=== PATIENT | female | born 1975 | race African-American/Black ===

== ENCOUNTER 2017-04-14 10:14 | Outpatient (CLI) | payer MEDICARE ==
[2017-04-14 13:18] LABS: BUN (Urea Nitrogen) 7 mg/dL (7.0-18.7); Calc. Creatinine Clearance 0 mL/min (70-130); Carbon Dioxide 24 mmol/L (22-29); Chloride 105 mmol/L (98-107); Estimated GFR-MDRD Greater than 90; Glucose 91 mg/dL (70-105); Potassium 3.6 mmol/L (3.5-5.1); Sodium 139 mmol/L (136-145)
[2017-04-14 13:19] LABS: ALT (SGPT) 23 U/L (8-55); AST (SGOT) 17 U/L (5-34); Albumin 3.8 g/dL (3.5-5.0); Alkaline Phosphatase 63 U/L (40-150); Bilirubin, Total 0.9 mg/dL (0.2-1.2); Calcium 9.1 mg/dL (7.8-10.44); Cholesterol 148 mg/dL (< 200 Desired); Globulin 4.3 g/dL (2.4-3.5); HDL Cholesterol 46 mg/dL (>60 Neg Risk); Protein, Total 8.1 g/dL (6.0-8.3); Triglycerides 64 mg/dL (Less than 150)
[2017-04-14 13:21] LABS: LDL Cholesterol, Calculated 90 mg/dL
[2017-04-14 13:25] LABS: Cardiac Risk 3.2 (Less than 4.5)
[2017-04-14 13:27] LABS: Anion Gap 14 mmol/L (10-20); Vitamin D, 25 Hydroxy 7.8 ng/ml (> 30.0)
[2017-04-14 17:10] LABS: Iron 24 ug/dL (50-170); Iron Binding Capacity, Total 341 mcg/dL (265-497)
[2017-04-14 17:38] LABS: Ferritin 24.87 ng/mL (10-291)
== END 2017-04-14 10:15 | disposition home or self-care (01) ==
LOC: MADLABBHPM 10:14
PROVIDERS: ATTEND Family Medicine
DX: D50.9 Iron deficiency anemia, unspecified (principal); E55.9 Vitamin D deficiency, unspecified; I10 Essential (primary) hypertension
CPT/HCPCS: 36415; 80053; 80061; 82306; 82728; 83540; 83550

== ENCOUNTER 2018-11-26 13:56 | Outpatient (CLI) | payer MEDICARE ==
--- NOTE | 2018-11-26 14:59 | RAD ---
THREE VIEWS LEFT KNEE: Comparison: None. History: Chronic left knee pain. FINDINGS: Three views of the left knee shows severe tricompartmental joint space narrowing and osteophyte forma tion consistent with osteoarthritis. There is no evidence of fracture or dislocation. No knee effusio n is seen. IMPRESSION: Severe left knee osteoarthritis. POS: [facility]
[2018-11-26 15:01] LABS: ALT (SGPT) 22 U/L (8-55); AST (SGOT) 14 U/L (5-34); Alkaline Phosphatase 71 U/L (40-150); Anion Gap 13 mmol/L (10-20); BUN (Urea Nitrogen) 11 mg/dL (7.0-18.7); Calc. Creatinine Clearance 0 mL/min (70-130); Calcium 9.4 mg/dL (7.8-10.44); Carbon Dioxide 24 mmol/L (22-29); Chloride 108 mmol/L (98-107); Estimated GFR-MDRD 89; Globulin 4.1 g/dL (2.4-3.5); Glucose 92 mg/dL (70-105); Potassium 4.3 mmol/L (3.5-5.1); Protein, Total 8.1 g/dL (6.0-8.3); Sodium 141 mmol/L (136-145)
[2018-11-26 15:10] LABS: Hemoglobin 10.4 g/dL (12.0-16.0); Hypochromia SLIGHT = 6-15 cells (100X) (0-5/hpf); Lymphocytes 31 % (21-51); MDiff Complete? YES; Mean Corpuscular Hemoglobin 19.9 pg (27.0-31.0); Mean Corpuscular Volume 68.8 fL (78.0-98.0); Mean Platelet Volume 5.9 fL (7.4-10.4); Microcytosis SLIGHT = 6-15 cells (100X) (0-5/hpf); Monocytes 8 % (0-10); Neutrophil 61 % (42-75); Platelet Count 366 thou/uL (130-400); Platelet Morphology Comment Appears Adequate; RBC Distribution Width 18.1 % (11.5-14.5); Red Blood Cell (RBC) Count 5.19 mill/uL (4.20-5.40); White Blood Cell (WBC) Count 8.6 thou/uL (4.8-10.8)
--- NOTE | 2018-11-26 15:13 | RAD ---
THREE VIEWS RIGHT KNEE: History: Chronic knee pain. FINDINGS: Three views of the right knee shows severe tricompartmental joint space narrowing and osteophyte form ation consistent with osteoarthritis. There is no evidence of acute fracture or dislocation. No knee effusion is seen. IMPRESSION: Severe right knee osteoarthritis. POS: [facility]
== END 2018-11-26 13:57 | disposition home or self-care (01) ==
LOC: MADRAD 13:56
PROVIDERS: ATTEND Orthopaedic Surgery
DX: M25.561 Pain in right knee (principal); M25.562 Pain in left knee; D47.3 Essential (hemorrhagic) thrombocythemia; I10 Essential (primary) hypertension; M17.0 Bilateral primary osteoarthritis of knee
CPT/HCPCS: 36415; 80053; 82728; 83540; 85025

== ENCOUNTER 2019-07-31 22:32 | Emergency (ER) | payer MEDICARE ==
[2019-07-31] MEDS ORDERED: Nitroglycerin 2% Ointment 1 INCH/1 GM Packet ONE (23:01)
[2019-07-31] MEDS ORDERED: Nitroglycerin 0.4 MG TAB 1 EACH ONE (23:01)
--- NOTE | 2019-07-31 23:12 | RAD ---
Chest one view HISTORY: Cough. FINDINGS: Cardiac silhouette is magnified and enlarged. Pulmonary vasculature slightly engorged. Medi astinum is midline. Left hemidiaphragm not well visualized, although overlying soft tissues and the enlarged heart obscure this area. No evidence of pneumothorax. IMPRESSION: Cardiomegaly with pulmonary vascular congestion. Consider CHF.
[2019-07-31 23:32] LABS: ALT (SGPT) 18 U/L (8-55); AST (SGOT) 23 U/L (5-34); Alkaline Phosphatase 61 U/L (40-110); Anion Gap 17 mmol/L (10-20); BUN (Urea Nitrogen) 12 mg/dL (7.0-18.7); Bilirubin, Total 3.2 mg/dL (0.2-1.2); Calc. Creatinine Clearance 0 mL/min (70-130); Calcium 9.1 mg/dL (7.8-10.44); Carbon Dioxide 22 mmol/L (22-29); Chloride 107 mmol/L (98-107); Estimated GFR-MDRD 80; Globulin 3.9 g/dL (2.4-3.5); Glucose 122 mg/dL (70-105); Potassium 3.9 mmol/L (3.5-5.1); Protein, Total 7.9 g/dL (6.0-8.3); Sodium 142 mmol/L (136-145)
[2019-07-31 23:50] LABS: #Basophils 0.1 thou/uL (0.0-0.2); #Lymphocytes 0.9 thou/uL (1.20-3.40); #Monocytes 0.5 thou/uL (0.11-0.59); #Neutrophils 11.3 thou/uL (1.40-6.50); %Basophils 0.7 % (0.0-1.0); %Eosinophils 0.3 % (0.0-10.0); %Lymphocytes 7.3 % (21.0-51.0); %Monocytes 3.9 % (0.0-10.0); %Neutrophils 87.9 % (42.0-75.0); Anisocytosis MODERATE=16-30 cells (100X) (0-5/hpf); Hemoglobin 11.2 g/dL (12.0-16.0); Hypochromia SLIGHT = 6-15 cells (100X) (0-5/hpf); MDiff Complete? YES; Mean Corpuscular HGB CONC 28.4 g/dL (32.0-36.0); Mean Corpuscular Hemoglobin 21.6 pg (27.0-31.0); Mean Corpuscular Volume 76.2 fL (78.0-98.0); Mean Platelet Volume 6.1 fL (7.4-10.4); Microcytosis SLIGHT = 6-15 cells (100X) (0-5/hpf); Ovalocytes SLIGHT = 2-5 cells (100X) (0-1/hpf); Platelet Count 435 thou/uL (130-400); Polychromasia SLIGHT = 2-3 cells (100X) (0-2/hpf); RBC Distribution Width 17.2 % (11.5-14.5); Red Blood Cell (RBC) Count 5.17 mill/uL (4.20-5.40); White Blood Cell (WBC) Count 12.8 thou/uL (4.8-10.8)
[2019-07-31 23:55] LABS: CKMB 1.9 ng/mL (0-6.6)
[2019-08-01] MEDS ORDERED: Furosemide 40 MG/4 ML VIAL ONE (00:12)
[2019-08-01] MEDS ORDERED: Aspirin Chewable 81 MG TAB ONE (00:12)
== END 2019-08-01 01:41 | disposition short-term general hospital (02) ==
LOC: MADERS 22:32
DX: I16.9 Hypertensive crisis, unspecified (principal); I11.0 Hypertensive heart disease with heart failure; I50.9 Heart failure, unspecified; R79.89 Other specified abnormal findings of blood chemistry; R09.02 Hypoxemia; E66.01 Morbid (severe) obesity due to excess calories; Z79.899 Other long term (current) drug therapy
CPT/HCPCS: 71045; 80053; 82553; 83880; 84484; 85025; 93005; 94760; 96374; J1940

== ENCOUNTER 2020-08-31 14:37 | Outpatient (CLI) | payer MEDICARE ==
--- NOTE | 2020-08-31 15:02 | RAD ---
Left knee 3 views HISTORY: Left knee pain. COMPARISON: 11/26/2018. FINDINGS: Near complete joint space loss of the medial compartment. Mild genu varus. Prominent tricom partmental osteophytosis. No acute fracture, dislocation, or aggressive osseous erosions, or fluid distention of the suprapatel lar bursa. IMPRESSION : Prominent arthritic changes. Stable compared to 11/26/2018.
--- NOTE | 2020-08-31 15:04 | RAD ---
Right knee 3 views HISTORY: Knee pain. COMPARISON: 11/26/2018. FINDINGS: Complete loss of joint space at the medial compartment with cortical remodeling and settlin g of the undersurface of the medial tibial plateau. Mild genu varus. Prominent tricompartmental osteophytosis. Osseous excrescence projecting anteriorly from the medial femoral condyle is unchanged and favored to represent an osteochondroma. No acute fracture, dislocation, or fluid distention of the suprapatellar bursa evident. IMPRESSION : Severe osteoarthritic changes. Stable compared to 11/26/2018.
== END 2020-08-31 14:38 | disposition home or self-care (01) ==
LOC: MADRAD 14:37
PROVIDERS: ATTEND Orthopaedic Surgery
DX: M17.0 Bilateral primary osteoarthritis of knee (principal)

== ENCOUNTER 2021-04-15 22:51 | Emergency (ER) | payer MEDICARE ==
[2021-04-15] MEDS ORDERED: predniSONE 10 MG TAB ONE (23:15)
[2021-04-15] MEDS ORDERED: HYDROcodone/Acetaminophen 5/325 mg Tablet ONE (23:15)
[2021-04-15] MEDS ORDERED: Acetaminophen 325 MG TAB ONE (23:15)
== END 2021-04-15 23:20 | disposition home or self-care (01) ==
LOC: MADERS 22:51
DX: M25.561 Pain in right knee (principal); I11.0 Hypertensive heart disease with heart failure; I50.9 Heart failure, unspecified; E66.01 Morbid (severe) obesity due to excess calories
CPT/HCPCS: 99283; J7512

== ENCOUNTER 2021-07-29 19:55 | Inpatient (IN) | payer MEDICARE ==
[2021-07-29 21:05] LABS: #Monocytes 0.5 thou/uL (0.11-0.59); #Neutrophils 9.4 thou/uL (1.40-6.50); %Basophils 0.4 % (0.0-1.0); %Lymphocytes 9.2 % (21.0-51.0); %Monocytes 4.8 % (0.0-10.0); %Neutrophils 85.6 % (42.0-75.0); Anisocytosis SLIGHT = 6-15 cells (100X) (0-5/hpf); Hemoglobin 10.3 g/dL (12.0-16.0); MDiff Complete? YES; Mean Corpuscular HGB CONC 29.9 g/dL (32.0-36.0); Mean Corpuscular Hemoglobin 20.9 pg (27.0-31.0); Mean Corpuscular Volume 69.7 fL (78.0-98.0); Mean Platelet Volume 7.7 fL (7.4-10.4); Microcytosis SLIGHT = 6-15 cells (100X) (0-5/hpf); Ovalocytes SLIGHT = 2-5 cells (100X) (0-1/hpf); Platelet Count 307 thou/uL (130-400); Platelet Morphology Comment Appears Adequate; RBC Distribution Width 16.1 % (11.5-14.5); Red Blood Cell (RBC) Count 4.93 mill/uL (4.20-5.40)
[2021-07-29 21:09] LABS: ALT (SGPT) 19 U/L (8-55); AST (SGOT) 22 U/L (5-34); Albumin 3.7 g/dL (3.5-5.0); Alkaline Phosphatase 55 U/L (40-110); Anion Gap 15 mmol/L (10-20); BUN (Urea Nitrogen) 9 mg/dL (7.0-18.7); Bilirubin, Total 2.6 mg/dL (0.2-1.2); Calc. Creatinine Clearance 0 mL/min (70-130); Calcium 9.2 mg/dL (7.8-10.44); Carbon Dioxide 23 mmol/L (22-29); Chloride 101 mmol/L (98-107); Globulin 5.1 g/dL (2.4-3.5); Glucose 102 mg/dL (70-105); Potassium 3.5 mmol/L (3.5-5.1); Protein, Total 8.8 g/dL (6.0-8.3); Sodium 135 mmol/L (136-145)
[2021-07-29] MEDS ORDERED: Acetaminophen 500 MG TAB ONE (21:20)
[2021-07-29] MEDS ORDERED: Sodium Chloride 0.9% 100 ML ONE (21:20)
[2021-07-29] MEDS ORDERED: Cefepime 2 GM VIAL ONE (21:20)
[2021-07-29] MEDS ORDERED: Sodium Chloride 0.9% 250 ML 500 ML ONE (21:56)
[2021-07-29 23:43] VITALS: BMI 54.3
[2021-07-30] MEDS ORDERED: Acetaminophen 325 MG TAB PO PRN (00:15)
[2021-07-30] MEDS ORDERED: Enoxaparin Sodium 40 MG/0.4 ML SYRINGE SC SCH ×2 (00:15)
[2021-07-30] MEDS ORDERED: Ondansetron ODT 4 MG TAB PO PRN (00:15)
[2021-07-30] MEDS ORDERED: HYDROcodone/Acetaminophen 5/325 mg Tablet PO PRN (00:15)
[2021-07-30] MEDS: HYDROcodone/Acetaminophen 5/325 mg Tablet PO PRN ×2 (01:28→22:29)
[2021-07-30] MEDS: Cefepime 2 GM in Sodium Chloride 0.9% 100 ML IVPB SCH ×3 (05:26→22:26)
[2021-07-30 05:29] LABS: Anisocytosis SLIGHT = 6-15 cells (100X) (0-5/hpf); Band 10 % (5-11); Hemoglobin 9.2 g/dL (12.0-16.0); Lymphocytes 11 % (21-51); MDiff Complete? YES; Mean Corpuscular HGB CONC 29.4 g/dL (32.0-36.0); Mean Corpuscular Hemoglobin 20.9 pg (27.0-31.0); Mean Corpuscular Volume 71.1 fL (78.0-98.0); Mean Platelet Volume 6.5 fL (7.4-10.4); Microcytosis SLIGHT = 6-15 cells (100X) (0-5/hpf); Monocytes 5 % (0-10); Neutrophil 74 % (42-75); Ovalocytes SLIGHT = 2-5 cells (100X) (0-1/hpf); Platelet Count 267 thou/uL (130-400); Platelet Morphology Comment Appears Adequate; RBC Distribution Width 16.2 % (11.5-14.5)
[2021-07-30 05:36] LABS: Anion Gap 13 mmol/L (10-20)
[2021-07-30 05:58] LABS: BUN (Urea Nitrogen) 15 mg/dL (7.0-18.7); Calc. Creatinine Clearance 115 mL/min (70-130); Calcium 8.6 mg/dL (7.8-10.44); Carbon Dioxide 23 mmol/L (22-29); Chloride 104 mmol/L (98-107); Glucose 113 mg/dL (70-105); Potassium 4.3 mmol/L (3.5-5.1); Sodium 136 mmol/L (136-145)
[2021-07-30 07:44] LABS: SARS-CoV-2 NAA Rapid Test Not Detected (NotDetected)
[2021-07-30] MEDS: Ferrous Sulfate 325 MG TAB PO SCH (07:53)
[2021-07-30] MEDS: Vancomycin HCl 1 GM in Sodium Chloride 0.9% 250 ML 250 ML IVPB SCH ×4 (07:55→20:17)
[2021-07-30] MEDS: Aspirin 81 mg Enteric Coated Tablet PO SCH (08:00)
[2021-07-30] MEDS ORDERED: Carvedilol 6.25 MG TAB PO SCH (08:00)
[2021-07-30] MEDS: Famotidine 20 MG TAB PO SCH ×2 (08:00→20:17)
[2021-07-30] MEDS: Enoxaparin Sodium 40 MG/0.4 ML SYRINGE SC SCH (08:01)
[2021-07-31] MEDS: Cefepime 2 GM in Sodium Chloride 0.9% 100 ML IVPB SCH ×3 (04:59→22:46)
[2021-07-31 05:35] LABS: Anisocytosis SLIGHT = 6-15 cells (100X) (0-5/hpf); Band 8 % (5-11); Eosinophils 1 % (0-10); Hemoglobin 8.8 g/dL (12.0-16.0); Lymphocytes 10 % (21-51); MDiff Complete? YES; Mean Corpuscular HGB CONC 30.3 g/dL (32.0-36.0); Mean Corpuscular Hemoglobin 21.2 pg (27.0-31.0); Mean Corpuscular Volume 69.9 fL (78.0-98.0); Mean Platelet Volume 6.8 fL (7.4-10.4); Microcytosis SLIGHT = 6-15 cells (100X) (0-5/hpf); Monocytes 4 % (0-10); Neutrophil 77 % (42-75); Platelet Count 257 thou/uL (130-400); RBC Distribution Width 16.5 % (11.5-14.5); Red Blood Cell (RBC) Count 4.18 mill/uL (4.20-5.40); White Blood Cell (WBC) Count 11.8 thou/uL (4.8-10.8)
[2021-07-31 05:37] LABS: Anion Gap 12 mmol/L (10-20); BUN (Urea Nitrogen) 21 mg/dL (7.0-18.7); Calc. Creatinine Clearance 132 mL/min (70-130); Calcium 8.7 mg/dL (7.8-10.44); Carbon Dioxide 23 mmol/L (22-29); Chloride 106 mmol/L (98-107); Glucose 84 mg/dL (70-105); Sodium 137 mmol/L (136-145)
[2021-07-31] MEDS: HYDROcodone/Acetaminophen 5/325 mg Tablet PO PRN ×2 (05:57→20:09)
[2021-07-31 07:14] LABS: Vancomycin, Trough 22.4 ug/mL
[2021-07-31] MEDS: Aspirin 81 mg Enteric Coated Tablet PO SCH (08:28)
[2021-07-31] MEDS: Ferrous Sulfate 325 MG TAB PO SCH (08:28)
[2021-07-31] MEDS: Enoxaparin Sodium 40 MG/0.4 ML SYRINGE SC SCH (08:28)
[2021-07-31] MEDS: Famotidine 20 MG TAB PO SCH ×2 (08:28→20:06)
[2021-07-31] MEDS: Vancomycin HCl 750 MG in Sodium Chloride 0.9% 250 ML 250 ML IVPB SCH ×5 (09:03→21:15)
[2021-08-01] MEDS: HYDROcodone/Acetaminophen 5/325 mg Tablet PO PRN ×2 (02:46→20:20)
[2021-08-01] MEDS: Bisacodyl 5 MG TAB PO PRN (02:47)
[2021-08-01] MEDS: Cefepime 2 GM in Sodium Chloride 0.9% 100 ML IVPB SCH ×3 (05:22→22:50)
[2021-08-01] MEDS: Aspirin 81 mg Enteric Coated Tablet PO SCH (08:04)
[2021-08-01] MEDS: Ferrous Sulfate 325 MG TAB PO SCH (08:04)
[2021-08-01] MEDS: Famotidine 20 MG TAB PO SCH ×2 (08:04→20:22)
[2021-08-01] MEDS: Enoxaparin Sodium 40 MG/0.4 ML SYRINGE SC SCH (08:04)
[2021-08-01] MEDS: Vancomycin HCl 750 MG in Sodium Chloride 0.9% 250 ML 250 ML IVPB SCH ×4 (08:06→21:35)
[2021-08-01 19:26] LABS: Vancomycin, Trough 18.9 ug/mL
[2021-08-02] MEDS: HYDROcodone/Acetaminophen 5/325 mg Tablet PO PRN ×3 (04:17→20:52)
[2021-08-02] MEDS: Cefepime 2 GM in Sodium Chloride 0.9% 100 ML IVPB SCH ×3 (05:28→22:44)
[2021-08-02] MEDS: Ferrous Sulfate 325 MG TAB PO SCH (08:26)
[2021-08-02] MEDS: Enoxaparin Sodium 40 MG/0.4 ML SYRINGE SC SCH (08:26)
[2021-08-02] MEDS: Famotidine 20 MG TAB PO SCH ×2 (08:26→20:28)
[2021-08-02] MEDS: Aspirin 81 mg Enteric Coated Tablet PO SCH (08:26)
[2021-08-02] MEDS: Vancomycin HCl 750 MG in Sodium Chloride 0.9% 250 ML 250 ML IVPB SCH ×4 (08:26→20:28)
[2021-08-02] MEDS ORDERED: Silver Sulfadiazine 50 GM TUBE TOP SCH (09:00)
[2021-08-02] MEDS ORDERED: Furosemide 40 MG TAB PO SCH ×2 (13:00→21:00)
[2021-08-02] MEDS: Silver Sulfadiazine 50 GM JAR TP SCH (15:02)
[2021-08-02] MEDS ORDERED: Silver Sulfadiazine 50 GM JAR TP SCH (21:00)
[2021-08-03] MEDS: Cefepime 2 GM in Sodium Chloride 0.9% 100 ML IVPB SCH ×3 (05:38→23:11)
[2021-08-03] MEDS ORDERED: Furosemide 20 MG TAB PO SCH (06:00)
[2021-08-03] MEDS: Vancomycin HCl 750 MG in Sodium Chloride 0.9% 250 ML 250 ML IVPB SCH ×4 (08:21→21:24)
[2021-08-03] MEDS: Aspirin 81 mg Enteric Coated Tablet PO SCH (08:29)
[2021-08-03] MEDS: Ferrous Sulfate 325 MG TAB PO SCH (08:29)
[2021-08-03] MEDS: Famotidine 20 MG TAB PO SCH ×2 (08:29→20:53)
[2021-08-03] MEDS: Silver Sulfadiazine 50 GM JAR TP SCH (08:30)
[2021-08-03] MEDS: Enoxaparin Sodium 40 MG/0.4 ML SYRINGE SC SCH (08:30)
[2021-08-03] MEDS: Furosemide 40 MG TAB PO SCH (14:41)
[2021-08-03] MEDS: Bisacodyl 5 MG TAB PO PRN (21:24)
[2021-08-04] MEDS: Cefepime 2 GM in Sodium Chloride 0.9% 100 ML IVPB SCH ×2 (06:03→13:22)
[2021-08-04] MEDS: HYDROcodone/Acetaminophen 5/325 mg Tablet PO PRN (06:14)
[2021-08-04 07:23] LABS: #Basophils 0.1 thou/uL (0.0-0.2); #Eosinphils 0.3 thou/uL (0.0-0.7); #Lymphocytes 1.9 thou/uL (1.20-3.40); #Monocytes 0.7 thou/uL (0.11-0.59); #Neutrophils 8.8 thou/uL (1.40-6.50); %Basophils 0.5 % (0.0-1.0); %Eosinophils 2.9 % (0.0-10.0); %Lymphocytes 16.3 % (21.0-51.0); %Monocytes 6.2 % (0.0-10.0); %Neutrophils 74.1 % (42.0-75.0); Hemoglobin 8.9 g/dL (12.0-16.0); Hypochromia SLIGHT = 6-15 cells (100X) (0-5/hpf); MDiff Complete? YES; Mean Corpuscular HGB CONC 30.1 g/dL (32.0-36.0); Mean Corpuscular Hemoglobin 20.8 pg (27.0-31.0); Mean Corpuscular Volume 69.3 fL (78.0-98.0); Mean Platelet Volume 7.2 fL (7.4-10.4); Microcytosis SLIGHT = 6-15 cells (100X) (0-5/hpf); Platelet Count 445 thou/uL (130-400); Polychromasia SLIGHT = 2-3 cells (100X) (0-2/hpf); Red Blood Cell (RBC) Count 4.29 mill/uL (4.20-5.40); White Blood Cell (WBC) Count 11.9 thou/uL (4.8-10.8)
[2021-08-04 07:24] LABS: Vancomycin, Trough 22.1 ug/mL
[2021-08-04 07:26] LABS: ALT (SGPT) 14 U/L (8-55); AST (SGOT) 14 U/L (5-34); Albumin 2.7 g/dL (3.5-5.0); Alkaline Phosphatase 43 U/L (40-110); Anion Gap 14 mmol/L (10-20); BUN (Urea Nitrogen) 10 mg/dL (7.0-18.7); Bilirubin, Total 0.6 mg/dL (0.2-1.2); Calc. Creatinine Clearance 209 mL/min (70-130); Calcium 8.7 mg/dL (7.8-10.44); Carbon Dioxide 19 mmol/L (22-29); Chloride 108 mmol/L (98-107); Globulin 5.1 g/dL (2.4-3.5); Glucose 96 mg/dL (70-105); Potassium 3.6 mmol/L (3.5-5.1); Protein, Total 7.8 g/dL (6.0-8.3); Sodium 137 mmol/L (136-145)
[2021-08-04] MEDS: Vancomycin HCl 750 MG in Sodium Chloride 0.9% 250 ML 250 ML IVPB SCH (07:55)
[2021-08-04] MEDS: Ferrous Sulfate 325 MG TAB PO SCH (08:00)
[2021-08-04] MEDS ORDERED: Potassium Chloride 20 MEQ TAB PO SCH (08:00)
[2021-08-04] MEDS: Furosemide 40 MG TAB PO SCH ×2 (08:55→13:21)
[2021-08-04] MEDS: Enoxaparin Sodium 40 MG/0.4 ML SYRINGE SC SCH (08:55)
[2021-08-04] MEDS: Aspirin 81 mg Enteric Coated Tablet PO SCH (08:55)
[2021-08-04] MEDS ORDERED: Vancomycin HCl 750 MG in Sodium Chloride 0.9% 250 ML 250 ML IVPB SCH (09:00)
[2021-08-04] MEDS: Famotidine 20 MG TAB PO SCH (09:05)
[2021-08-04] MEDS: Silver Sulfadiazine 50 GM JAR TP SCH (09:05)
[2021-08-04] MEDS ORDERED: Vancomycin HCl 500 MG in Sodium Chloride 0.9% 100 ML IVPB SCH (10:00)
[2021-08-04 12:09] VITALS: BP 115/68; TEMP 97.6
== END 2021-08-04 16:47 | disposition swing bed (61) | DRG 603 ==
LOC: MADERS 19:55 → MADMS 21:41
PROVIDERS: ADMIT Family Medicine; ATTEND Family Medicine
DX: L03.115 Cellulitis of right lower limb (principal); I50.22 Chronic systolic (congestive) heart failure; I42.8 Other cardiomyopathies; Z20.822 Contact with and (suspected) exposure to COVID-19; E78.5 Hyperlipidemia, unspecified; I95.2 Hypotension due to drugs; I11.0 Hypertensive heart disease with heart failure; E66.01 Morbid (severe) obesity due to excess calories; D50.9 Iron deficiency anemia, unspecified; T14.8XXA Other injury of unspecified body region, initial encounter; E80.6 Other disorders of bilirubin metabolism; N28.9 Disorder of kidney and ureter, unspecified; R26.81 Unsteadiness on feet; I48.0 Paroxysmal atrial fibrillation; X58.XXXA Exposure to other specified factors, initial encounter; Z88.8 Allergy status to other drugs, medicaments and biological substances; Z79.82 Long term (current) use of aspirin; Z79.899 Other long term (current) drug therapy; Z98.51 Tubal ligation status
CPT/HCPCS: 36415; 80048; 80053; 80202; 83605; 85007; 85025; 85027; 87040; 96365; 96367; J0692; J1650; J3370; J3490; J7050; U0002

== ENCOUNTER 2021-08-04 16:51 | Inpatient (IN) | payer MEDICARE ==
[2021-08-04 17:08] VITALS: BMI 54.9
[2021-08-04] MEDS ORDERED: Bisacodyl 5 MG TAB PO PRN (21:16)
[2021-08-04] MEDS ORDERED: Ondansetron ODT 4 MG TAB PO PRN (21:16)
[2021-08-04] MEDS ORDERED: HYDROcodone/Acetaminophen 5/325 mg Tablet PO PRN (21:16)
[2021-08-04] MEDS: HYDROcodone/Acetaminophen 5/325 mg Tablet PO PRN (21:35)
[2021-08-04] MEDS: Vancomycin HCl 500 MG in Sodium Chloride 0.9% 100 ML IVPB SCH (21:49)
[2021-08-04] MEDS: Vancomycin HCl 750 MG in Sodium Chloride 0.9% 250 ML 250 ML IVPB SCH (21:49)
[2021-08-04] MEDS ORDERED: Cefepime 2 GM VIAL IVPB SCH (22:00)
[2021-08-05] MEDS: Cefepime 2 GM in Sodium Chloride 0.9% 100 ML IVPB SCH ×4 (00:21→22:57)
[2021-08-05] MEDS: HYDROcodone/Acetaminophen 5/325 mg Tablet PO PRN ×2 (01:24→05:56)
[2021-08-05] MEDS: Acetaminophen 325 MG TAB PO SCH ×6 (01:45→20:42)
[2021-08-05] MEDS: Potassium Chloride 20 MEQ TAB PO SCH (09:21)
[2021-08-05] MEDS: Famotidine 20 MG TAB PO SCH ×2 (09:21→20:41)
[2021-08-05] MEDS: Aspirin 81 mg Enteric Coated Tablet PO SCH (09:21)
[2021-08-05] MEDS: Ferrous Sulfate 325 MG TAB PO SCH (09:21)
[2021-08-05] MEDS: Furosemide 40 MG TAB PO SCH ×2 (09:21→20:42)
[2021-08-05] MEDS: Vancomycin HCl 750 MG in Sodium Chloride 0.9% 250 ML 250 ML IVPB SCH ×2 (09:23→20:59)
[2021-08-05] MEDS: Enoxaparin Sodium 40 MG/0.4 ML SYRINGE SC SCH (09:26)
[2021-08-05] MEDS: Vancomycin HCl 500 MG in Sodium Chloride 0.9% 100 ML IVPB SCH ×2 (09:31→20:59)
[2021-08-05 20:28] LABS: Vancomycin, Trough 18.1 ug/mL
[2021-08-06] MEDS: HYDROcodone/Acetaminophen 5/325 mg Tablet PO PRN (00:17)
[2021-08-06] MEDS: Acetaminophen 325 MG TAB PO SCH ×6 (00:38→20:33)
[2021-08-06] MEDS: Cefepime 2 GM in Sodium Chloride 0.9% 100 ML IVPB SCH ×2 (05:47→14:35)
[2021-08-06] MEDS: Enoxaparin Sodium 40 MG/0.4 ML SYRINGE SC SCH (08:34)
[2021-08-06] MEDS: Aspirin 81 mg Enteric Coated Tablet PO SCH (08:34)
[2021-08-06] MEDS: Potassium Chloride 20 MEQ TAB PO SCH (08:35)
[2021-08-06] MEDS: Furosemide 40 MG TAB PO SCH ×2 (08:35→20:33)
[2021-08-06] MEDS: Famotidine 20 MG TAB PO SCH ×2 (08:35→20:33)
[2021-08-06] MEDS: Ferrous Sulfate 325 MG TAB PO SCH (08:35)
[2021-08-06] MEDS: Vancomycin HCl 750 MG in Sodium Chloride 0.9% 250 ML 250 ML IVPB SCH (09:01)
[2021-08-06] MEDS: Vancomycin HCl 500 MG in Sodium Chloride 0.9% 100 ML IVPB SCH (09:08)
[2021-08-06 15:04] LABS: SARS-CoV-2 PCR by NAA Not Detected (NotDetected)
[2021-08-07] MEDS: Acetaminophen 325 MG TAB PO SCH ×6 (02:08→20:20)
[2021-08-07] MEDS: Furosemide 40 MG TAB PO SCH ×2 (08:14→20:19)
[2021-08-07] MEDS: Famotidine 20 MG TAB PO SCH ×2 (08:14→20:19)
[2021-08-07] MEDS: Aspirin 81 mg Enteric Coated Tablet PO SCH (08:14)
[2021-08-07] MEDS: Potassium Chloride 20 MEQ TAB PO SCH (08:14)
[2021-08-07] MEDS: Ferrous Sulfate 325 MG TAB PO SCH (08:14)
[2021-08-07] MEDS: Enoxaparin Sodium 40 MG/0.4 ML SYRINGE SC SCH (08:16)
[2021-08-07] MEDS ORDERED: Carvedilol 6.25 MG TAB PO SCH ×3 (09:00→21:00)
[2021-08-08] MEDS: Acetaminophen 325 MG TAB PO SCH ×6 (00:26→20:31)
[2021-08-08] MEDS: Carvedilol 6.25 MG TAB PO SCH ×2 (08:00→16:25)
[2021-08-08] MEDS: Famotidine 20 MG TAB PO SCH ×2 (08:01→20:32)
[2021-08-08] MEDS: Ferrous Sulfate 325 MG TAB PO SCH (08:01)
[2021-08-08] MEDS: Aspirin 81 mg Enteric Coated Tablet PO SCH (08:01)
[2021-08-08] MEDS: Enoxaparin Sodium 40 MG/0.4 ML SYRINGE SC SCH (08:01)
[2021-08-08] MEDS: Potassium Chloride 20 MEQ TAB PO SCH (08:02)
[2021-08-08] MEDS: Furosemide 40 MG TAB PO SCH ×2 (08:02→15:09)
[2021-08-09] MEDS: Acetaminophen 325 MG TAB PO SCH ×6 (01:35→20:30)
[2021-08-09] MEDS: Famotidine 20 MG TAB PO SCH ×2 (08:29→20:31)
[2021-08-09] MEDS: Aspirin 81 mg Enteric Coated Tablet PO SCH (08:29)
[2021-08-09] MEDS: Potassium Chloride 20 MEQ TAB PO SCH (08:29)
[2021-08-09] MEDS: Furosemide 40 MG TAB PO SCH ×2 (08:29→17:11)
[2021-08-09] MEDS: Carvedilol 12.5 MG TAB PO SCH ×2 (08:29→17:11)
[2021-08-09] MEDS: Enoxaparin Sodium 40 MG/0.4 ML SYRINGE SC SCH (08:29)
[2021-08-09] MEDS: Ferrous Sulfate 325 MG TAB PO SCH (08:29)
[2021-08-10] MEDS: Acetaminophen 325 MG TAB PO SCH ×3 (01:47→08:30)
[2021-08-10 07:26] VITALS: BP 125/80; TEMP 98.3
[2021-08-10] MEDS: Ferrous Sulfate 325 MG TAB PO SCH (08:29)
[2021-08-10] MEDS: Furosemide 40 MG TAB PO SCH (08:29)
[2021-08-10] MEDS: Famotidine 20 MG TAB PO SCH (08:29)
[2021-08-10] MEDS: Potassium Chloride 20 MEQ TAB PO SCH (08:29)
[2021-08-10] MEDS: Aspirin 81 mg Enteric Coated Tablet PO SCH (08:29)
[2021-08-10] MEDS: Carvedilol 12.5 MG TAB PO SCH (08:29)
[2021-08-10] MEDS: Enoxaparin Sodium 40 MG/0.4 ML SYRINGE SC SCH (08:30)
== END 2021-08-10 13:30 | disposition home or self-care (01) | DRG 603 ==
LOC: MADMS 16:51
PROVIDERS: ADMIT Family Medicine; ATTEND Family Medicine
DX: L03.115 Cellulitis of right lower limb (principal); I50.22 Chronic systolic (congestive) heart failure; Z68.43 Body mass index [BMI] 50.0-59.9, adult; Z20.822 Contact with and (suspected) exposure to COVID-19; R53.81 Other malaise; D50.9 Iron deficiency anemia, unspecified; I11.0 Hypertensive heart disease with heart failure; R26.89 Other abnormalities of gait and mobility; I48.0 Paroxysmal atrial fibrillation; I25.5 Ischemic cardiomyopathy; E66.01 Morbid (severe) obesity due to excess calories; I95.2 Hypotension due to drugs; E78.5 Hyperlipidemia, unspecified; Z88.8 Allergy status to other drugs, medicaments and biological substances; Z79.82 Long term (current) use of aspirin; Z79.899 Other long term (current) drug therapy; Z98.51 Tubal ligation status
CPT/HCPCS: 80202; J0692; J1650; J3370; J3490; J7050; U0003; U0005